=== PATIENT | male | born 1990 | race Caucasian/White ===

== ENCOUNTER 2016-11-03 19:51 | Emergency (ER) | payer OTHER ==
[~2016-11-03] VITALS: Ht 167.6 cm; Wt 90.1 kg
[~2016-11-03 19:51] MED LIST: dayquil
[2016-11-03 19:56] VITALS: TEMP 37.8; Ht 167.6 cm; Wt 90.1 kg
[2016-11-03] MEDS ORDERED: SODIUM CHLORIDE 0.9% 1000ML 1,000 ML IV STA (20:13)
[2016-11-03] MEDS ORDERED: METOCLOPRAMIDE HCL INJ 5 MG/ML 2 ML VIAL IV STA (20:13)
--- NOTE | 2016-11-03 20:14 | EMERGENCY ROOM VISIT NOTE ---
History Report prepared by Jojo: Terra Olmstead Under the Supervision of: Dr. Sagar Gaviria M.D. First contact with patient: 20:06 Chief Complaint: FLU LIKE SX Stated Complaint: FLU History of Present Illness The patient is a 26 year old male who presents to the Emergency Room with complaints of constant flu like symptoms beginning 2 days ago. The patient states that he has had diarrhea, nausea, vomiting, and diaphoresis for the last 2 days. He notes that he had [employer] and [employer] Castaneda prior to feeling sick. He reports that he has had some intermittent abdominal pain. The patient states that 2 days ago he went to urgent care but his symptoms have persisted. He notes a history of colitis but states that this feels different. Source of History: patient Onset: 2 days ago Position: other (global) Quality: other (flu-like symptoms) Timing: constant Associated Symptoms: + diaphoresis, + nausea, + vomiting, + abdominal pain, + diarrhea Review of Systems See HPI for pertinent positives & negatives. A total of 10 systems reviewed and were otherwise negative. Past Medical & Surgical Medical Problems: (1) Colitis Family History Patient reports no known family medical history. Social History Smoking Status: Never Smoker Smokeless Tobacco Use: No Alcohol Use: occasionally Marital Status: single Housing Status: lives with family Occupation Status: employed Current/Historical Medications Scheduled Mesalamine (Asacol Hd), 800 MG PO TID Ondasetron Odt (Zofran Odt), 4 MG SL Q6H Pantoprazole (Protonix), 40 MG PO DAILY Sertraline (Zoloft), 150 MG PO DAILY Allergies Coded Allergies: Bee Venom (Verified Allergy, Intermediate, Trouble Breathing, 11/03/16) Physical Exam Vital Signs Date Time Temp Pulse Resp B/P (MAP) Pulse Ox O2 Delivery O2 Flow Rate FiO2 11/03/16 22:30 88 16 115/71 98 11/03/16 19:56 37.8 95 18 112/67 97 Room Air Physical Exam GENERAL: Patient is a healthy-appearing well-nourished [] HEAD: Normocephalic atraumatic EYES: Ocular movements intact pupils equal and react to light OROPHARYNX mucous membranes are moist no exudates present no erythema or edema present NECK: Supple no nuchal rigidity CHEST: Good equal expansion LUNGS: Clear and equal to auscultation CARDIAC: Normal S1 and S2 ABDOMEN: Soft nontender no guarding BACK: No CVA tenderness EXTREMITIES: No pain upon palpation normal muscle strength in all groups no clubbing cyanosis or edema NEURO: Patient is following commands and answering questions appropriately. Alert and oriented x3 Cranial Nerves 2-12 grossly intact Medical Decision & Procedures ER Provider Diagnostic Interpretation: Radiology results as stated below per my review and radiologist interpretation: PA CHEST WITH ABDOMINAL SERIES FINDINGS: A PA chest radiograph is obtained. No prior studies are available for comparison at the time of dictation. The cardiomediastinal silhouette is unremarkable. The lungs and pleural spaces are clear. No pneumothorax is seen. The bony thorax is grossly intact. Fusion hardware is noted in the lower cervical spine. Supine and erect abdominal radiographs are obtained. No prior studies are available for comparison at the time of dictation. There is a nonobstructed abdominal bowel gas pattern. No evidence of intraperitoneal free air is seen. There are no abnormal abdominal calcifications. The lumbosacral spine and bony pelvis appear intact. IMPRESSION: 1. No active disease in the chest. 2. Unremarkable abdominal radiographs. Electronically signed by: Willie Hernadez M.D. 11/03/2016 9:32 PM Dictated Date/Time: 11/03/2016 9:30 PM Laboratory Results 11/03/16 20:27 Red Blood Count 5.21, Mean Corpuscular Volume 87.1, Mean Corpuscular Hemoglobin 29.0, Mean Corpuscular Hemoglobin Concent 33.3, Mean Platelet Volume 9.5, Neutrophils (%) (Auto) 73.8, Lymphocytes (%) (Auto) 11.5, Monocytes (%) (Auto) 12.8, Eosinophils (%) (Auto) 1.7, Basophils (%) (Auto) 0.2, Neutrophils # (Auto ) 3.46, Lymphocytes # (Auto) 0.54, Monocytes # (Auto) 0.60, Eosinophils # (Auto ) 0.08, Basophils # (Auto) 0.01 11/03/16 20:27 Test 11/03/16 00:00 11/03/16 20:27 11/03/16 21:00 Urine Color YELLOW Urine Appearance CLEAR (CLEAR) Urine pH 5.5 (4.5-7.5) Urine Specific Wallace 1.015 (1.000-1.030) Urine Protein NEG (NEG) Urine Glucose (UA) NEG (NEG) Urine Ketones NEG (NEG) Urine Occult Blood NEG (NEG) Urine Nitrite NEG (NEG) Urine Bilirubin NEG (NEG) Urine Urobilinogen NEG (NEG) Urine Leukocyte Esterase NEG (NEG) White Blood Count 4.69 K/uL (4.8-10.8) Red Blood Count 5.21 M/uL (4.7-6.1) Hemoglobin 15.1 g/dL (14.0-18.0) Hematocrit 45.4 % (42-52) Mean Corpuscular Volume 87.1 fL (80-100) Mean Corpuscular Hemoglobin 29.0 pg (25-34) Mean Corpuscular Hemoglobin Concent 33.3 g/dl (32-36) Platelet Count 165 K/uL (130-400) Mean Platelet Volume 9.5 fL (7.4-10.4) Neutrophils (%) (Auto) 73.8 % Lymphocytes (%) (Auto) 11.5 % Monocytes (%) (Auto) 12.8 % Eosinophils (%) (Auto) 1.7 % Basophils (%) (Auto) 0.2 % Neutrophils # (Auto) 3.46 K/uL (1.4-6.5) Lymphocytes # (Auto) 0.54 K/uL (1.2-3.4) Monocytes # (Auto) 0.60 K/uL (0.11-0.59) Eosinophils # (Auto) 0.08 K/uL (0-0.5) Basophils # (Auto) 0.01 K/uL (0-0.2) RDW Standard Deviation 41.3 fL (36.4-46.3) RDW Coefficient of Variation 12.9 % (11.5-14.5) Immature Granulocyte % (Auto) 0.0 % Immature Granulocyte # (Auto) 0.00 K/uL (0.00-0.02) Anion Gap 5.0 mmol/L (3-11) Est Creatinine Clear Calc Drug Dose 92.1 ml/min Estimated GFR () 88.5 Estimated GFR (Non- 76.4 BUN/Creatinine Ratio 7.7 (10-20) Calcium Level 9.3 mg/dl (8.5-10.1) Total Bilirubin 0.5 mg/dl (0.2-1) Direct Bilirubin 0.1 mg/dl (0-0.2) Aspartate Amino Transf (AST/SGOT) 20 U/L (15-37) Alanine Aminotransferase (ALT/SGPT) 32 U/L (12-78) Alkaline Phosphatase 60 U/L (45-117) Total Protein 7.4 gm/dl (6.4-8.2) Albumin 3.7 gm/dl (3.4-5.0) Lipase 88 U/L (73-393) Date/Time Source Procedure Growth Status 11/03/16 21:00 Stool C.difficile Toxin B Gene (PCR) - Final No C. difficile toxin B gene detected Complete Labs reviewed by ED physician. Medications Administered Medications (Trade) Dose Ordered Sig/Cindy Route Start Time Stop Time Status Last Admin Dose Admin Sodium Chloride 1,000 ml @ 999 mls/hr Q1H1M STAT IV 11/03/16 20:13 11/03/16 21:13 DC 11/03/16 20:55 999 MLS/HR Metoclopramide HCl (Reglan Inj) 10 mg NOW STAT IV 11/03/16 20:13 11/03/16 20:16 DC 11/03/16 20:55 10 MG Potassium Chloride (Janice Ciel Elix) 40 meq NOW STAT PO 11/03/16 21:19 11/03/16 21:20 DC 11/03/16 22:15 40 MEQ Ondansetron HCl (Zofran Odt) 4 mg ONE STAT PO 11/03/16 21:23 11/03/16 21:25 DC 11/03/16 21:35 4 MG Ondansetron HCl (ZOFRAN ODT 4MG Home Pack) 1 homepack UD ONCE PO 11/03/16 21:30 11/03/16 21:31 DC 11/03/16 22:16 1 HOMEPACK Cholestyramine Resin (Questran Powder Light) 4 gm NOW STAT PO 11/03/16 21:48 11/03/16 21:49 DC 11/03/16 22:16 4 GM ED Course 2006: Past medical records reviewed. The patient was evaluated in room C12B. A complete history and physical examination was performed. 2012: Reglan Inj 10mg IV, Sodium Chloride 1000 ml @ 999 mls/hr IV. 2118: Potassium Chloride 40meq PO. 2119: Zofran Inj 4mg IV. 2122: Zofran Odt 4mg PO. 2129: Ondansetron HCl 1 homepack PO 2147: Questran Powder Light 4gm PO. 2200: Upon reexamination the patient is doing well. I discussed results and treatment plan with the patient. He verbalizes agreement and understanding. The patient is ready for discharge. Medical Decision Differential diagnosis: Etiologies such as appendicitis, diverticulitis, PUD, biliary pathology, UTI, pancreatitis, obstruction, mesenteric ischemia, aortic pathology, infections, inflammatory bowel disease, renal colic, as well as others were entertained. This is a 26-year-old who presents emergency Department with gastroenteritis- like symptoms. Serial abdominal examinations were performed on the patient in the emergency department in no time did the patient exhibit a surgical abdomen. He has no right lower quadrant abdominal tenderness. Based on these findings I felt that the patient can be conservatively treated. An IV was established, the patient given normal saline bolus, Reglan. Repeat examination revealed improvement the patient's symptoms. The patient was able to provide a stool sample for analysis he was able to tolerate oral Gatorade in the emergency department along with potassium. I feel based on these findings at the patient can be safely discharged home with Zofran. Patient was in agreement with the treatment plan. Impression Primary Impression: Gastroenteritis Scribe Attestation The scribe's documentation has been prepared under my direction and personally reviewed by me in its entirety. I confirm that the note above accurately reflects all work, treatment, procedures, and medical decision making performed by me. Departure Information Dispostion Home / Self-Care Prescriptions Ondasetron Odt (ZOFRAN ODT) 4 Mg Tab 4 MG SL Q6H for Nausea, #6 TAB Prov: Sagar Gaviria MD 11/03/16 Forms HOME CARE DOCUMENTATION FORM, IMPORTANT VISIT INFORMATION Patient Instructions ED Diet Vomiting Diarrhea, ED Gastroenteritis Report Pend, ED Gastroenteritis Vs Food Poison, My [facility] Additional Instructions Use probiotics for diarrhea Culture results are usually available in approx 48 hours You have been examined and treated today on an emergency basis only. This is not a substitute for, or an effort to provide, complete comprehensive medical care. It is impossible to recognize and treat all injuries or illnesses in a single emergency department visit. It is therefore important that you follow up closely with Dr Sirera. Call as soon as possible for an appointment. Thank you for your time and consideration. I look forward to speaking with you again soon. Please don't hesitate to call us if you have any questions.
[2016-11-03 20:36] LABS: BASO % 0.2 %; BASO ABS # 0.01 K/uL (0-0.2); COMPLETE YES; EOS % 1.7 %; HEMATOCRIT 45.4 % (42-52); LYMPH % 11.5 %; LYMPH ABS # 0.54 K/uL (1.2-3.4); MEAN CELL VOLUME 87.1 fL (80-100); MEAN CORPUSCULAR HGB CONC 33.3 g/dl (32-36); MEAN PLATELET VOLUME 9.5 fL (7.4-10.4); MONO % 12.8 %; NEUT % 73.8 %; PLATELET COUNT 165 K/uL (130-400); RED BLOOD COUNT 5.21 M/uL (4.7-6.1); WHITE BLOOD COUNT 4.69 K/uL (4.8-10.8)
[2016-11-03 20:55] LABS: BUN/CREATININE RATIO 7.7 (10-20); CALCIUM 9.3 mg/dl (8.5-10.1); CREATININE 1.3 mg/dl (0.60-1.40); POTASSIUM 3.3 mmol/L (3.5-5.1)
[2016-11-03] MEDS ORDERED: PANT40TA PO (21:04)
[2016-11-03] MEDS ORDERED: SERT-234 PO (21:04)
[2016-11-03] MEDS ORDERED: MESA800T6 PO (21:04)
[2016-11-03] MEDS ORDERED: POTASSIUM CHLORIDE 20 MEQ/15 ML UDC PO STA (21:19)
[2016-11-03] MEDS ORDERED: ONDANSETRON INJ 2 MG/ML 2 ML VIAL IV STA (21:20)
[2016-11-03] MEDS ORDERED: ONDANSETRON 4MG OD TAB PO STA (21:23)
[2016-11-03] MEDS ORDERED: ONDANSETRON HOME PACK 4MG OD TAB PO ONE (21:30)
--- NOTE | 2016-11-03 21:33 | DIAGNOSTIC IMAGING REPORT ---
PA CHEST WITH ABDOMINAL SERIES CLINICAL HISTORY: Nausea and diarrhea. Vomiting. FINDINGS: A PA chest radiograph is obtained. No prior studies are available for comparison at the time of dictation. The cardiomediastinal silhouette is unremarkable. The lungs and pleural spaces are clear. No pneumothorax is seen. The bony thorax is grossly intact. Fusion hardware is noted in the lower cervical spine. Supine and erect abdominal radiographs are obtained. No prior studies are available for comparison at the time of dictation. There is a nonobstructed abdominal bowel gas pattern. No evidence of intraperitoneal free air is seen. There are no abnormal abdominal calcifications. The lumbosacral spine and bony pelvis appear intact. IMPRESSION: 1. No active disease in the chest. 2. Unremarkable abdominal radiographs. Electronically signed by: Willie Hernadez M.D. 11/03/2016 9:32 PM Dictated Date/Time: 11/03/2016 9:30 PM
[2016-11-03 21:48] LABS: URINE APPEARANCE CLEAR (CLEAR); URINE BILIRUBIN NEG (NEG); URINE COLOR YELLOW; URINE NITRITE NEG (NEG); URINE PH 5.5 (4.5-7.5); URINE SPECIFIC GRAVITY 1.015 (1.000-1.030); UROBILINOGEN NEG (NEG)
[2016-11-03] MEDS ORDERED: CHOLESTYRAMINE LIGHT 4 GM PKT PO STA (21:48)
[2016-11-03 21:49] LABS: MANUAL MICROSCOPIC REQUIRED? NO; REVIEW REQ? NO
[2016-11-03] MEDS ORDERED: ONDA4TAB10 SL (21:59)
[2016-11-03 22:30] VITALS: BP 115/71; PULSE 88; O2SAT 98
[2016-11-09 12:50] LABS: NOROVIRUS RNA** TC 19098X NOT DETECTED; O&P GIARDIA AG NOT DETECTED (NOT DETECTED)
== END 2016-11-03 22:34 | disposition home or self-care (01) ==
LOC: C.EDB 19:52 → C.EDC 22:34
DX: K52.9 Noninfective gastroenteritis and colitis, unspecified (principal)